=== PATIENT | female | born 1950 | race African-American/Black ===

== ENCOUNTER 2017-04-24 01:30 | Emergency (ER) | payer SELFPAY, BC, MEDICARE | END 2017-04-24 05:23 | disposition left against medical advice (07) | LOC: FTE 05:23 | DX: Z53.21 Procedure and treatment not carried out due to patient leaving prior to being seen by health care provider (principal) ==

== ENCOUNTER 2017-10-29 21:57 | Emergency (ER) | payer OTHER, BC, MEDICARE ==
[2017-10-29] MEDS: IPRATROPIUM (NEB) 0.5 MG/2.5 ML AMP INH (22:39)
[2017-10-29] MEDS: LEVALBUTEROL (NEB) 1.25 MG/0.5 ML AMP INH (22:39)
[2017-10-29] MEDS: METHYLPREDNISOLONE 125 MG INJ IV (22:57)
[2017-10-29] MEDS: MAGNESIUM SULFATE 2 GM/50 ML 50 ML IVPB (22:57)
[2017-10-29] MEDS: SOD CHLORIDE 0.9% 500 ML IV (22:58)
== END 2017-10-30 00:36 | disposition home or self-care (01) ==
LOC: E/R 10-30 00:36
DX: J45.901 Unspecified asthma with (acute) exacerbation (principal)
CPT/HCPCS: 71045; 94644; 96374; 96375; 99284-25

== ENCOUNTER 2018-07-30 00:45 | Emergency (ER) | payer BC, OTHER ==
[2018-07-30] MEDS: LEVALBUTEROL (NEB) 1.25 MG/0.5 ML AMP INH (01:43)
[2018-07-30] MEDS: IPRATROPIUM (NEB) 0.5 MG/2.5 ML AMP INH (01:43)
[2018-07-30 01:59] LABS: ADD MAN DIFF? NO
[2018-07-30 02:01] LABS: WHITE BLOOD COUNT 6.1 10^3/ul (4.8-10.8)
[2018-07-30 02:01] LABS: ABNORMAL IP MESSAGE 1; BASOPHILS % 0.3 % (0.0-2.0); EOSINOPHILS # 0.1 10^3/ul (0.0-0.5); HEMATOCRIT 45.5 % (37.0-47.0); HEMOGLOBIN 14.9 g/dl (12.0-16.0); LYMPHOCYTES # 0.3 10^3/ul (0.8-2.9); MEAN CORPUSCULAR HEMOGLOBIN 31.2 pg (29.0-33.0); MEAN CORPUSCULAR HGB CONC 32.7 g/dl (32.0-37.0); MEAN CORPUSCULAR VOLUME 95.2 fl (82.0-101.0); MEAN PLATELET VOLUME 10.1 fl (7.4-10.4); MONOCYTE # 0.6 10^3/ul (0.3-0.9); MONOCYTES % 10.3 % (0.0-11.0); NEUTROPHIL # 5.1 10^3/ul (1.6-7.5); NEUTROPHILS % 83.1 % (39.0-77.0); PLATELET COUNT 236 10^3/UL (140-415); RED BLOOD COUNT 4.78 10^6/ul (4.20-5.40); RED CELL DISTRIBUTION WIDTH 12.6 % (11.5-14.5)
[2018-07-30 02:03] LABS: POSITIVE DIFF @See below
[2018-07-30] MEDS: METHYLPREDNISOLONE 125 MG INJ IV (02:03)
[2018-07-30] MEDS: SOD CHLORIDE 0.9% 1,000 ML IV (02:04)
[2018-07-30 02:26] LABS: ANION GAP 11 (5-13); BLOOD UREA NITROGEN 7 mg/dl (7-20); CALCIUM 10.5 mg/dl (8.4-10.2); CARBON DIOXIDE 28 mmol/L (21-31); CHLORIDE 104 mmol/L (97-110); Estimated GFR > 60 mL/min (>60); GLUCOSE 154 mg/dl (70-220); POTASSIUM 4.1 mmol/L (3.5-5.1); SODIUM 143 mmol/L (135-144)
== END 2018-07-30 04:30 | disposition left against medical advice (07) ==
LOC: E/R 00:45
DX: J45.901 Unspecified asthma with (acute) exacerbation (principal); I10 Essential (primary) hypertension; Z87.891 Personal history of nicotine dependence
CPT/HCPCS: 71045; 80048; 85025; 94644; 96374; 99284-25